=== PATIENT | female | born 1990 ===

== ENCOUNTER 2018-05-09 11:49 | Emergency (ER) | payer MEDICAID ==
[2018-05-09 11:49] VITALS: BMI 41.5
[2018-05-09 11:52] VITALS: BP 132/81; PULSE 83; RESP 14; TEMP 98.1; O2SAT 100
[2018-05-09] MEDS ORDERED: Sodium Chloride 0.9% 1,000 ML IV STA (12:40)
[2018-05-09 13:05] LABS: BASO # 0.1 K/uL (0.0-0.2); EOS # 0.3 K/uL (0.0-0.7); EOS % 4.2 % (0.0-4.0); HEMOGLOBIN 11.7 g/dL (12.0-16.0); LYMPH # 1.7 K/uL (1.0-4.3); LYMPH % 20.7 % (20.0-40.0); MEAN CORPUSCULAR HEMOGLOBIN 27.6 pg (27.0-31.0); MEAN CORPUSCULAR HGB CONC 32.1 g/dL (33.0-37.0); MEAN PLATELET VOLUME 8.9 fl (7.2-11.7); MONO # 0.5 K/uL (0.0-0.8); MONO % 6.5 % (0.0-10.0); NEUT # 5.6 K/uL (1.8-7.0); NEUT % 67.6 % (50.0-75.0); NRBC % 0.2 % (0.0-0.0); RBC 4.22 Mil/uL (3.80-5.20); WHITE BLOOD COUNT 8.2 K/uL (4.8-10.8)
--- NOTE | 2018-05-09 13:10 | ED PDOC ---
HPI: Abdomen Time Seen by Provider: 05/09/18 12:21 Chief Complaint (Nursing): Abdominal Pain Chief Complaint (Provider): Abdominal Pain History Per: Patient History/Exam Limitations: no limitations Onset/Duration Of Symptoms: Hrs (since 1045 this morning) Outside of [place] travel?: No Current Symptoms Are (Timing): Still Present Pain Scale Rating Of: 6 Location Of Pain/Discomfort: Diffuse Quality Of Discomfort: Aching, Cramping Additional Complaint(s): 27 year old female presents to the ED for evaluation of diffuse abdominal pain described as aching and cramping since 1045 this morning, rated a 6/10. She states the pain started on her left side, but now she also feels it on the right side. Patient also notes that earlier this morning she was rushing to work and held in her bowel movement, but is unsure if this is related. 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 LMP: current PMD: Gurpreet Past Medical History Reviewed: Historical Data, Nursing Documentation, Vital Signs Vital Signs: Last Vital Signs Temp 98.1 F 05/09/18 11:51 Pulse 83 05/09/18 11:51 Resp 14 05/09/18 11:51 BP 132/81 05/09/18 11:51 Pulse Ox 100 05/09/18 11:51 - Medical History PMH: No Chronic Diseases - Surgical History Surgical History: (x2) Other surgeries: gastric sleeve (july 2017) - Family History Family History: States: Unknown Family Hx - Living Arrangements Living Arrangements: With Family - Social History Current smoker - smoking cessation education provided: No - Home Medications Home Medications: Ambulatory Orders Medication Instructions Recorded Docusate [Colace] 100 mg PO Q8 PRN #12 cap 05/09/18 RX: Naproxen 500 mg PO BID PRN #20 tab 05/09/18 - Allergies Allergies/Adverse Reactions: Allergies Allergy/AdvReac Type Severity Reaction Status Date / Time No Known Allergies Allergy Verified 10/19/17 10:01 Review of Systems ROS Statement: Except As Marked, All Systems Reviewed And Found Negative Constitutional: Negative for: Fever Gastrointestinal: Positive for: Abdominal Pain (diffuse, described as aching and cramping, rated 6/10). Negative for: Nausea, Vomiting, Diarrhea, Melena, Hematochezia Genitourinary Female: Negative for: Dysuria, Frequency, Incontinence Physical Exam - Reviewed Nursing Documentation Reviewed: Yes Vital Signs Reviewed: Yes - Physical Exam Comments: GENERAL APPEARANCE: Patient is awake, alert, oriented x 3, in no acute distress. Resting comfortably. SKIN: Warm, dry; (-) cyanosis. EYES: (-) conjunctival pallor, (-) scleral icterus. ENMT: Mucous membranes moist. Airway patent, (-) stridor. NECK: Supple, FROM CHEST AND RESPIRATORY: (-) rales, (-) rhonchi, (-) wheezes; breath sounds equal bilaterally. Respirations nonlabored. HEART AND CARDIOVASCULAR: (-) irregularity ABDOMEN AND GI: Soft (-) distention. Bowel sounds active x4; (+) tenderness in RLQ and LLQ. (-) guarding, (-) rebound, (-) palpable masses, (-) CVA tenderness. EXTREMITIES: (-) deformity, (-) edema, (+) distal pulses. NEURO AND PSYCH: Mental status as above; (-) focal findings. Gait: steady. Spee ch: clear. (-) facial asymmetry (-) aphasia - Laboratory Results Result Diagrams: 05/09/18 13:00 05/09/18 13:00 Urine POC: Negative Urine dip results: Positive for: Ketones (trace), Protein (30). Negative for: Leukocyte Esterase, Blood, Nitrate, Glucose, Bilirubin - ECG O2 Sat by Pulse Oximetry: 100 (RA) Pulse Ox Interpretation: Normal Medical Decision Making Medical Decision Making: Time: 1240 Initial Impression: abdominal pain Initial Plan: --CMP --Lipase --U-preg --U-dip --CBC with differential --Normal saline IV --Pepcid 20mg IVP --Toradol 30mg IVP --Urinalysis 1310 Udip reviewed and unremarkable. 1345 CBC, CMP, and U/A grossly unremarkable. 1415 On re-evaluation, patient reports resolution of symptoms after having a large bowel movement in ED. On exam, patient remains AAOx3, in no acute distress. Lungs clear to auscultation, cardiac RRR, abdomen soft, non-tender, repeat neuro exam shows no focal findings. Vitals stable. Lab / Diagnostic results d/w the patient in great detail. Diagnosis of acute abdominal pain d/w the patient. Based on history, exam and diagnostic results, plan will be for outpatient follow up. Patient instructed to follow-up with pmd / referral provided / the clinic in 1- 2 days without fail. Advised to take medication as prescribed. Return to the emergency room at any time for any new or worsening symptoms. Patient states she fully agrees with and understands discharge instructions. States that she agrees with the plan and disposition. Verbalized and repeated discharge instructions and plan. I have given the patient opportunity to ask any additional questions. Scribe Attestation: Documented by Anny Colvin, acting as a scribe for Melba Joaquin PA-C. Provider Scribe Attestation: All medical record entries made by the Scribe were at my direction and personally dictated by me. I have reviewed the chart and agree that the record accurately reflects my personal performance of the history, physical exam, medical decision making, and the department course for this patient. I have also personally directed, reviewed, and agree with the discharge instructions and disposition. Disposition - Clinical Impression Clinical Impression: Abdominal pain - Patient ED Disposition Is Patient to be Admitted: No Counseled Patient/Family Regarding: Studies Performed, Diagnosis, Need For Followup, Rx Given - Disposition Referrals: Cesar Vázquez MD [Family Provider] - Disposition: Routine/Home Disposition Time: 14:15 Condition: STABLE Additional Instructions: The emergency medical care you received today was directed at your acute symptoms. If you were prescribed any medication, please fill it and take as directed. It may take several days for your symptoms to resolve. Return to the Emergency Department if your symptoms worsen, do not improve, or if you have any other problems. Please contact your doctor in 2 days for re-evaluation and follow up / or call one of the physicians/clinics you have been referred to that are listed on the Patient Visit Information form that is included in your discharge packet. Bring any paperwork you were given at discharge with you along with any medications you are taking to your follow up visit. Our treatment cannot replace ongoing medical care by a primary care provider (PCP) outside of the emergency department. Prescriptions: Docusate [Colace] 100 mg PO Q8 PRN #12 cap PRN Reason: Constipation RX: Naproxen 500 mg PO BID PRN #20 tab PRN Reason: Pain, Moderate (4-7) Instructions: Acute Abdomen (Belly Pain) Forms: [employer] (Bulgarian) Print Language: SENEGALESE - POA Present On Arrival: None Results - Lab Results Lab Results: 05/09/18 05/09/18 05/09/18 13:00 13:00 13:00 WBC 8.2 RBC 4.22 Hgb 11.7 L Hct 36.3 MCV 86.0 D MCH 27.6 MCHC 32.1 L RDW 14.0 Plt Count 327 MPV 8.9 Neut % (Auto) 67.6 Lymph % (Auto) 20.7 [place] % (Auto) 6.5 Eos % (Auto) 4.2 H Baso % (Auto) 1.0 Neut # (Auto) 5.6 Lymph # (Auto) 1.7 [place] # (Auto) 0.5 Eos # (Auto) 0.3 Baso # (Auto) 0.1 Sodium 137 Potassium 4.5 Chloride 104 Carbon Dioxide 24 Anion Gap 14 BUN 10 Creatinine 0.7 Est GFR ( Amer) > 60 Est GFR (Non-Af Amer) > 60 Random Glucose 88 Calcium 9.2 Total Bilirubin 0.7 AST 27 ALT 13 Alkaline Phosphatase 64 Total Protein 8.2 Albumin 4.4 Globulin 3.8 Albumin/Globulin Ratio 1.2 Lipase 50 Urine Color Yellow Urine Clarity Cloudy Urine pH 5.0 Ur Specific [place] 1.038 H Urine Protein 100 Urine Glucose (UA) Neg Urine Ketones Negative Urine Blood Negative Urine Nitrate Negative Urine Bilirubin Negative Urine Urobilinogen 0.2-1.0 Ur Leukocyte Esterase Neg Urine RBC (Auto) 2 Urine Microscopic WBC 2 Ur Squamous Epith Cells 2 Urine Bacteria Rare Hyaline Casts 3-5 H
[2018-05-09 13:12] LABS: SQUAMOUS EPITHIAL 2 /hpf (0-5); URINE BACTERIA RARE (<OCC); URINE BILIRUBIN NEGATIVE (NEGATIVE); URINE BLOOD NEGATIVE (NEGATIVE); URINE CLARITY CLOUDY (Clear); URINE COLOR YELLOW (YELLOW); URINE GLUCOSE (UA) NEG (NEGATIVE); URINE LEUKOCYTE ESTERASE NEG Leu/uL (Negative); URINE PROTEIN 100 mg/dL (NEGATIVE); URINE UROBILINOGEN 0.2-1.0 mg/dL (0.2-1.0)
[2018-05-09 13:17] LABS: ALB/GLOB RATIO 1.2 (1.0-2.1); ALBUMIN 4.4 g/dL (3.5-5.0); BLOOD UREA NITROGEN 10 mg/dl (7-17); CALCIUM 9.2 mg/dL (8.4-10.2); GFR NON-AFRICAN AMERICAN > 60; LIPASE 50 U/L (23-300)
[2018-05-09 13:30] LABS: ALT/SGPT 13 U/L (9-52); AST/SGOT 27 U/L (14-36)
== END 2018-05-09 14:43 | disposition home or self-care (01) ==
LOC: H.ER 11:49
DX: R10.9 Unspecified abdominal pain (principal)
CPT/HCPCS: 80053; 81003; 81025; 83690; 85025; 96361; 96374; 96375; 99284; J1885; J7030